=== PATIENT | female | born 1995 | race Caucasian/White ===

== ENCOUNTER 2020-10-21 18:43 | Inpatient (IN) | payer OTHER ==
[2020-10-21] VITALS (7 sets, daily range): BP systolic 107–126; BP diastolic 63–75; PULSE 69–84; TEMP 98–98.3
[~2020-10-21] VITALS: Ht 160 cm; Wt 113.6 kg
--- NOTE | 2020-10-21 19:15 | NUR ---
Ambulatory to unit for labor induction , accompanied by spouse. Upon nurse's entry to room, pt eating [employer] fries and chicken nuggets. Pt states "I was afraid I couldn't eat once we got things started so I want to eat first. Can I have 10 more minutes?"
--- NOTE | 2020-10-21 20:00 | NUR ---
Difficult to maintain FHR tracing r/t pt's body habitus.
[2020-10-21 20:41] LABS: BASO % 0.4 % (0.0-2.0); EOS # 0.2 (0.0-0.7); EOS % 2.7 % (0-4.0); GRAN # 5.8 (1.4-6.5); GRAN % 71.6 % (42.2-75.2); LYMPH # 1.3 (1.2-3.4); LYMPH % 16.7 % (20.0-51.0); MEAN CELL VOLUME 82 fl (80.0-100.0); MEAN CORPUSCULAR HGB CONC 33 g/dl (33.0-37.0); MEAN PLATELET VOLUME 9.9 fl (7.4-10.4); MONO # 0.6 (0.1-0.6); MONO % 7.2 % (1.7-9.3); PLATELET COUNT 293 K/mm3 (130-400); REDCELL DISTRIBUTION WIDTH-CV 14.6 % (11.5-14.5)
[2020-10-21 20:47] LABS: HEMATOCRIT 30.2 % (37.0-47.0); HEMOGLOBIN 9.9 g/dl (12.5-16.0); MEAN CORPUSCULAR HEMOGLOBIN 27 pg (27.0-31.0)
--- NOTE | 2020-10-21 20:50 | NUR ---
Difficulty maintaining FHR tracing r/t pt's body habitus and movements. Monitor showing uterine activity, pt unaware.
[2020-10-21] MEDS ORDERED: PRENATAL FORMU1 EAC3 PO (21:22)
[2020-10-22] VITALS (87 sets, daily range): BP systolic 100–155; BP diastolic 55–96; PULSE 46–89; TEMP 97.5–98.6
--- NOTE | 2020-10-22 04:10 | NUR ---
SVE FT/HIGH/POSTERIOR.
--- NOTE | 2020-10-22 06:30 | NUR ---
Ctx tracing intermittently due to maternal habitus and position. RN at bedside palpating ctx and adjusting toco.
--- NOTE | 2020-10-22 07:15 | NUR ---
PT UP TO RESTROOM, GETTING CLEANED UP FOR THE DAY, ABLE TO PALPATE MILD CONTRACTIONS THROUGHOUT, UNABLE TO TRACE FHR/TOCO
--- NOTE | 2020-10-22 07:18 | NUR ---
AT BEDSIDE, SVE /-2, AROM WITH MEC STAINED FLUID, FHR TRACING LUQ, NOTIFIED, BEDSIDE ULTRASOUND PERFORMED BY PROVIDER, VERTEX PRESENTATION COMFIRMED
--- NOTE | 2020-10-22 08:35 | NUR ---
PT UP AMBULATING IN ROOM, USES RESTROOM, BACK TO ROCKING CHAIR TO SIT UP TO RELIEVE PRESSURE, REPORTS INCREASING PAIN WITH CONTRACTIONS, DIFFICULTY INITIAL TRACING UPON RETURNING TO CHAIR, PALPABLE CONTRACTIONS NOTED THROUGHOUT THIS ENCOUNTER
--- NOTE | 2020-10-22 10:34 | NUR ---
PT ROTATING FROM LEFT TO RIGHT LATERAL SIDE LYING POSITION, DIFFICULTY TRACING FHR/TOCO DUE TO MOVEMENT AND BED POSITIONING, REPOSITIONED FOLLOWING 15 MINUTE REPOSITIONING ROUTINE TO PT'S COMFORT AND TOCO/FHR MONITOR READJUSTED TO CONTINUE MONITORING
--- NOTE | 2020-10-22 12:10 | NUR ---
1210: FERNANDEZ FRAUSTO AT BEDSIDE, PT ASSISTED TO EDGE OF BED FOR EPIDURAL PLACEMENT, FHR TRACING INTERMITTENTLY DUE TO MATERNAL HABITUS AND POSITION, THIS RN REMAINS AT BEDSIDE ADJUSTING EFM 1216: FHR TRACING INTERMITTENTLY, PITOCIN PAUSED 1230: EPIDURAL PLACED, SINGLE SHOT ADMINISTERED AT THIS TIME BY SANDRA FRAUSTO, SEE ANESTHESIA RECORD 1238: PT WEDGED LEFT, EFM ADJUSTED AND TRACING WELL, PITOCING RESUMED AT 20MU
--- NOTE | 2020-10-22 15:20 | NUR ---
CURRENT EPIDURAL REMOVED BY LISETTE FRAUSTO AND REPLACED WITH NEW EPIDURAL, SINGLE SHOT AT 1521, PT TOLERATED PROCEDURE WELL, PT REPORTS NEARLY IMMEDIATE RELIEF, FHR DIFFICULT TO TRACE DURING EPIDURAL PLACEMENT, RN REMAINS AT BEDSIDE
--- NOTE | 2020-10-22 17:00 | NUR ---
1700- MVU's 250 1730- MVU's 205 1800- MVU's 280
--- NOTE | 2020-10-22 19:10 | NUR ---
1909 - DR. Salamanca at bedside for SVE. /-2 with swelling of the cervix. Currently having recurrent late declerations down to 120 bpm with baseline of 150 bpm and minimal variability. Decision made to proceed with section at this time. Pitocin off at this time. Pt agreeable to plan. All questions answered. Maeve Hansen, JETT notified. Strub tech and nursery notified.
--- NOTE | 2020-10-22 19:28 | NUR ---
Pt being prepped for OR. Hibiclens scrub performed. IUPC out. Monitors off at 1927 and transferred to OR by bed.
[2020-10-23 00:15] VITALS: BP 118/64; PULSE 72
[2020-10-23 04:15] VITALS: BP 119/67; PULSE 70; TEMP 98.4
[2020-10-23] MEDS ORDERED: MOTRIN 800800 MG/TAB PO (07:46)
[2020-10-23] MEDS ORDERED: PERCOCET 325 MG1 TA2 PO (07:46)
[2020-10-23 08:45] VITALS: BP 115/64; PULSE 82; TEMP 98.1
--- NOTE | 2020-10-23 09:18 | NUR ---
Initial visit; Family thanked Certified Bench Jeweler Technician for offering congratulations and God's blessings for the of their son. Certified Bench Jeweler Technician thanked family for choosing [facility].
[2020-10-23 17:00] VITALS: BP 118/62; PULSE 79; TEMP 98.3
[2020-10-23 20:00] VITALS: BP 105/70; PULSE 57; TEMP 97.7
--- NOTE | 2020-10-23 20:00 | NUR ---
PT SHOWERED DRESSING REMOVED- BRST FEEDING IS GOING BETTER WITH NIPPLE SHEILD
[2020-10-24 08:35] VITALS: BP 106/60; PULSE 75; TEMP 97.6
== END 2020-10-24 14:00 | disposition home or self-care (01) | DRG 788 ==
LOC: LDR 18:43 → OB 10-22 21:15
PROVIDERS: ADMIT Obstetrics & Gynecology
PROC: 10D00Z1 Extraction of Products of Conception, Low, Open Approach (ICD-10-PCS; principal; 2020-10-22)
DX: O77.0 Labor and delivery complicated by meconium in amniotic fluid (principal); Z3A.39 39 weeks gestation of pregnancy; Z37.0 Single live birth; O62.1 Secondary uterine inertia; O99.02 Anemia complicating childbirth; D64.9 Anemia, unspecified; O76 Abnormality in fetal heart rate and rhythm complicating labor and delivery; F41.9 Anxiety disorder, unspecified; O99.344 Other mental disorders complicating childbirth; O99.52 Diseases of the respiratory system complicating childbirth; J45.909 Unspecified asthma, uncomplicated
CPT/HCPCS: J0690; J1100; J1885; J2405; J2590; J7120

== ENCOUNTER → 2020-10-21 | Outpatient (CLI) | payer SELFPAY ==
[~2020-10-21] MED LIST: MOTRIN 800800 MG/TAB PO; PERCOCET 325 MG1 TA2 PO; PRENATAL FORMU1 EAC3 PO
== END ==
LOC: ZCOL.LAB 10-16 11:45
DX: Z20.822 Contact with and (suspected) exposure to COVID-19 (principal)